=== PATIENT | male | born 1965 | race Caucasian/White ===

== ENCOUNTER → 2020-12-24 | Outpatient (CLI) | payer SELFPAY ==
--- NOTE | 2020-12-25 21:08 | MR ---
EXAMINATION TYPE: MR brain wo con DATE OF EXAM: 12/24/2020 COMPARISON: None HISTORY: Syncope and dizziness, passed out last week, dizziness spells CONTRAST: Performed utilizing 0 mL intravenous Gadavist gadolinium contrast. TECHNIQUE: Multiplanar, multiecho imaging on a 3.0 Shruthi magnet is performed through the brain. Stud y is performed within 24 hours of arrival to the hospital. The craniovertebral junction is normal. The pituitary is normal. Diffusion-weighted imaging is performed. No abnormal hyperintensity is present to suggest an acute i ntracranial infarct or acute ischemic change. Signal within the brain appears normal. No suspicious hyperintensities on T2 or inversion recovery we ighted sequences are evident. Ventricles and sulci are appropriate for the patient age. Normal vascular flow voids are present. IMPRESSIONS: 1. No acute intracranial process.
== END | disposition home or self-care (01) ==
LOC: RADMRIMAIN 08:40
PROVIDERS: ATTEND Family Medicine
DX: R55 Syncope and collapse (principal); R42 Dizziness and giddiness
CPT/HCPCS: 70551

== ENCOUNTER → 2024-05-18 | Outpatient (CLI) | payer BC ==
--- NOTE | 2024-05-18 13:10 | XR ---
EXAMINATION TYPE: XR chest 2V DATE OF EXAM: 05/18/2024 1:07 PM COMPARISON: None TECHNIQUE: XR chest 2V Frontal and lateral views of the chest. CLINICAL INDICATION:Male, 59 years old with history of R06.2 dyspnea; FINDINGS: Lungs/Pleura: There is no evidence of pleural effusion, focal consolidation, or pneumothorax. Pulmonary vascularity: Unremarkable. Heart/mediastinum: Cardiomediastinal silhouette is unremarkable. Musculoskeletal: No acute osseous pathology. IMPRESSION: No acute cardiopulmonary disease/process. [facility], , 05/18/2024 1:08 PM
== END | disposition home or self-care (01) ==
LOC: RADXRMAIN 12:42
PROVIDERS: ATTEND Family Medicine
DX: R06.09 Other forms of dyspnea (principal)
CPT/HCPCS: 71046

== ENCOUNTER → 2024-10-06 | Outpatient (CLI) | payer BC ==
--- NOTE | 2024-10-06 14:59 | CA ---
Exercise Stress Test Report Name: Meek Dietrich Exam Date: 10/06/2024 10:58 Exam Location: [place] Stress Ht (in): 68 Wt (lb): 200 BSA: 2.04 Ordering Phys: Johnathon Euceda MD Referring Phys: QUIANA Technologist: CHAO VILLEGAS Age: 59 Gender: M : 1965 Procedure CPT: Indications: R06.09 Dyspnea ICD-10 Codes: Patient History: Medications: STATIN,,, Meds past 24 hrs: Pretest Chest Pain: STRESS TEST Roland Protocol Exercise Duration (min:sec): 05:[address] Depressions (mm): Angina Score: Carter Score: Resting HR (bpm): 78 Peak HR (bpm): 149 Resting BP (mmHg): 146 / 87 Peak BP (mmHg): 184 / 88 MPHR: 161 Target HR: 137 % MPHR: 93 METS: 7.1 Total Dose: Peak Dose: Atropine: Double Product: 06009 BP Response: Stress Termination: TARGET HR REACHED/MAX EXERTION Stress Symptoms: DIFFICULTY IN BREATHING Stress Summary: ECG ANALYSIS Resting ECG: Stress ECG: CONCLUSIONS Diagnosis shortness of breath on exertion, dyslipidemia Stress test shows low average exercise capacity Frequent PACs and several nonsustained VT Mild upsloping ST depression in the lateral precordial leads Mildly abnormal stress test at fairly low exercise/workload Dr. Marquis Crawford MD (Electronically Signed) Final Date: 06 Oct 2024 14:59
== END | disposition home or self-care (01) ==
LOC: RADNMMAIN 10:20
PROVIDERS: ATTEND Family Medicine
DX: R06.09 Other forms of dyspnea (principal); R94.31 Abnormal electrocardiogram [ECG] [EKG]; E78.5 Hyperlipidemia, unspecified
CPT/HCPCS: 93017

== ENCOUNTER 2024-10-28 06:10 | Day surgery (SDC) | payer BC ==
[2024-10-28] MEDS ORDERED: ASPIRIN 325 MG TAB PO STA (06:56)
[2024-10-28] MEDS ORDERED: NITROGLYCERIN SL TABS 0.4 MG TAB SUBLINGUAL PRN (06:56)
[2024-10-28] MEDS ORDERED: ALPRAZolam 0.25 MG TAB PO PRN (06:56)
[2024-10-28] MEDS ORDERED: SODIUM CHLORIDE 0.9% 1,000 ML in EMPTY BAG 1 BAG IV SCH (06:56)
[2024-10-28] MEDS ORDERED: ALPRAZolam 0.5 MG TAB PO PRN (06:56)
[2024-10-28] MEDS ORDERED: ATORVASTATIN 80 MG TAB PO STA (06:56)
[2024-10-28] MEDS: IV FLUID CONTINUATION 1,000 ML IV ONE (06:58)
[2024-10-28 07:13] VITALS: RESP 16; TEMP 97
[2024-10-28] MEDS: HEPARIN SODIUM,PORCINE (1 ML) 2,500 UNIT in SODIUM CHLORIDE 0.9% 250 ML IRRIGATION PRN (07:28)
[2024-10-28] MEDS: HEPARIN SODIUM,PORCINE 10,000 UNIT in SODIUM CHLORIDE 0.9% 1,000 ML IRRIGATION PRN (07:28)
[2024-10-28] MEDS: LIDOCAINE 2% (PF) 20 MG/ML 5 ML VIAL SQ ONE ×2 (07:29→07:30)
[2024-10-28] MEDS: MIDAZOLAM 2 MG/2 ML VIAL IVP ONE ×3 (07:29→07:57)
[2024-10-28] MEDS: fentaNYL (PF) 50 MCG/1 ML VIAL IVP ONE ×3 (07:29→08:10)
[2024-10-28] MEDS: VERAPAMIL SYRINGE (5 MG/10 ML) INTRAARTER ONE (07:30)
[2024-10-28] MEDS: HEPARIN SODIUM 1,000 UN/ML (10ML VL) IVP ONE ×3 (07:35→08:21)
--- NOTE | 2024-10-28 08:29 | CC ---
CARDIAC CATHETERIZATION REPORT INDICATION: Shortness of breath with abnormal stress test. PROCEDURE NOTE: After obtaining informed consent, left heart catheterization and coronary angiogram were performed via the right radial artery using standard Grace catheters. We used a size 3.5 and size 4 Grace catheters to engage the right coronary artery. The patient tolerated the procedure well without any obvious immediate complications. Total sedation time was 25 minutes. Right radial artery access was obtained using Seldinger technique, 6-[place] sheath was placed. Catheters and wires were floated into the ascending aorta under fluoroscopic guidance. The patient received verapamil and heparin per protocol. FINDINGS: 1. Hemodynamics: Left ventricular end-diastolic pressure 15. There is no significant gradient across the aortic valve. 2. Left ventriculogram: Not performed. 3. Angiographic data: a.Right coronary artery: Large dominant vessel that shows mild to moderate nonobstructive disease in the proximal and midportion as it bifurcates into the PDA and PLV. There is a 60% stenosis. Left main coronary artery appears calcified, but is free of significant disease. The distal left main shows 10% to 20% stenosis as it divides into left anterior descending coronary artery and circumflex coronary artery. Circumflex coronary artery gives off a large caliber diagonal branch that shows 60% to 70% stenosis. LAD itself has mild nonobstructive disease. CONCLUSION: 1. Nonsignificant distal left main stenosis. 2. 60% stenosis involving distal RCA, 60% to 70% stenosis involving the OM branch. PLAN: I reviewed angiographic data with Dr. Tellez, the on-call laundry washer, who is going to perform IFR of both the lesions in the circ and the right and if they come back to be hemodynamically significant, he will proceed with angioplasty and stent placement. MMODL / IJN: [id number] /
[2024-10-28] MEDS: IOPAMIDOL-370 100ML BTL INTRATHECA ONE ×2 (08:33)
--- NOTE | 2024-10-28 11:04 | P.CARDCATH ---
Description of Procedure: PROCEDURES PERFORMED: Bilateral coronary angiography, iFR left main to LAD, iFR of RCA INDICATION: GIRON, abnormal stress test CONSENT: The risks, benefits and alternative therapies for the above-mentioned procedure and for both sedation/analgesia as well as necessary blood product administration, if indicated, as they pertain to this patient were discussed. The patient has indicated understanding and acceptance of the risks and procedures discussed. PROCEDURE: After the risks, benefits and alternatives of the above mentioned p rocedure explained in detail with the patient, informed consent was obtained. Patient was taken to the catheterization lab and prepped and draped in usual fashion. A 6-[place] sheath had previously been placed in the right radial artery. I was asked to perform functional assessment of the circumflex, left main and RCA. Heparin was given. A 6 [place] CLS 3.0 guide was used to engage the left m ain. A 0.014 pressure wire was advanced to the left main and normalized. It was initially advanced into the circumflex however the wire was significant floppy with inability for the wire to advance into the tortuous approximately 120 degree takeoff of the circumflex with it prolapsing down the LAD. This was despite additional body support of a 0.014 whisper wire as well as using a guide liner. Angiographically the circumflex appeared small caliber and appeared to have 40 to 50% stenosis and therefore further attempts at iFR of the circumflex were abandoned. There was still some left main disease however and therefore the pressure wire was advanced into the proximal LAD and RFR (iFR) was performed of the left main into the LAD and was normal at 0.98. Next the decision was made to perform functional assessment of the RCA. There was diffuse disease with anterior takeoff. A 6 [place] AL 0.75 guide was used to engage the RCA however still somewhat short. A 0.014 pressure wire was advanced in the proximal RCA and normalized. It was then advanced in the distal RCA. There was some difficulty wiring past the mid RCA somewhat tortuous lesion with this backing out the guide which appeared mainly related to diffuse disease. iFR (RFR) was performed and was significantly abnormal at 0.61. Pullback showed this was mainly of the mid to distal RCA (just after where the cine was saved as this was after the pullback). Given complex diffuse disease, inability to easily wire with likely need for femoral approach and possible 8 [place] system decision made to proceed with medical therapy and then consider stenting if needed. The right radial sheath was removed and a TR band was placed with hemostasis achieved. The patient tolerated the procedure well. Patient was transported [facility] to the post catheterization holding area in stable condition. Conscious Sedation: Patient was monitored under the direct supervision of myself for conscious sedation using Versed and fentanyl for a total duration of 25 minutes HEMODYNAMICS: Aorta: 132/72 SELECTIVE CORONARY ARTERIOGRAPHY: LEFT MAIN: The left main is a large caliber vessel which bifurcates into the LAD and circumflex. There is distal left main 30% stenosis. LEFT ANTERIOR DESCENDING CORONARY ARTERY: LAD is a large caliber vessel which wraps around to the apex. There is proximal LAD 30% stenosis and otherwise diffuse proximal mid LAD 20 to 30% stenosis. LEFT CIRCUMFLEX CORONARY ARTERY: Left circumflex is a moderate caliber vessel with a proximal 40-50% circumflex stenosis which leads to a small caliber OM1 branch. The takeoff of the circumflex is 90 to 120 degrees with sharp angulation. RIGHT CORONARY ARTERY: The right coronary artery is a large caliber vessel which gives off a PDA and PLV branch and is the dominant vessel. There is diffuse proximal to mid RCA stenosis in the 40 to 50% range. The mid to distal RCA has some more significant angulation and tortuosity with a mid to distal RCA 50 to 60% stenosis. At this 50 to 60% stenosis this is the area of significant stepdown from 0.98-0.62 for the IFR. The distal RCA has diffuse bifurcation 50 to 60% stenosis. FINAL IMPRESSION: 1. CAD as described above including 30% left main, 30% LAD, 40 to 50% circumflex, and diffuse RCA disease with 50 to 60% mid RCA stenosis 2. iFR normal of left main to LAD, iFR abnormal at mid to distal RCA at 0.62 PLAN: 1. Aggressive risk factor modification per most recent ACC/AHA guidelines. 2. Patient does have diffuse disease with difficulty even wiring the RCA lesion. In part related to tortuosity and calcification and therefore would attempt medical therapy. Some increased risk of stenting and therefore would try to maximize medical therapy. If stenting performed will likely need to go from a femoral approach with possible 8 [place] system.
[2024-10-28 11:12] VITALS: BP 146/84; PULSE 58
== END 2024-10-28 12:03 | disposition home or self-care (01) ==
LOC: CATHCVL 06:10
PROVIDERS: ATTEND Internal Medicine Cardiovascular Disease
DX: I25.10 Atherosclerotic heart disease of native coronary artery without angina pectoris (principal); Z79.899 Other long term (current) drug therapy
CPT/HCPCS: 99152; 99153; 93458; 93799; C1769 ×3; C1887 ×3; C1894; J2250; J1644 ×3; Q9967; J2003; J3010